=== PATIENT | female | born 2000 | race Caucasian/White ===

== ENCOUNTER 2020-01-20 18:19 | Emergency (ER) | payer OTHER ==
[~2020-01-20] VITALS: Ht 160 cm; Wt 63.5 kg
[2020-01-20] MEDS ORDERED: Bactrim Ds Tab1 EACH PO (20:24)
[2020-01-20] MEDS ORDERED: IBUP600 PO (20:24)
== END 2020-01-20 20:44 | disposition home or self-care (01) ==
LOC: ER 18:19
DX: L03.211 Cellulitis of face (principal); F17.210 Nicotine dependence, cigarettes, uncomplicated
CPT/HCPCS: 99283; A9270-GY